=== PATIENT | female | born 1975 | race Caucasian/White ===

== ENCOUNTER 2021-03-11 09:22 | Emergency (ER) | payer OTHER, SELFPAY ==
[2021-03-11 09:31] VITALS: BP 120/90; PULSE 83; RESP 16; TEMP 36.2; O2SAT 99
--- NOTE | 2021-03-11 10:10 | ED.GENADULT ---
HPI - General Adult General Chief complaint: Skin/Abscess/Foreign Body Stated complaint: rash Source: patient Mode of arrival: ambulatory Limitations: no limitations History of Present Illness HPI narrative: Patient is a 45-year-old female who presents to the [facility] via POV for evaluation of a rash located on arms that has been present for 3 days. She reports the rash is erythematous and pruritic. She has tried a topical cream prescribed by her associate editor that has provided minimal relief cream. Nothing worsens rash. Related Data Home Medications Medication Instructions Recorded Confirmed amoxicillin 500 mg PO Q12H 03/11/21 03/11/21 fexofenadine [Ida Allergy] 180 mg PO DAILY 03/11/21 03/11/21 montelukast [Singulair] 10 mg PO DAILY 03/11/21 03/11/21 sertraline [Zoloft] 25 mg PO DAILY 03/11/21 03/11/21 thyroid (pork) [Lily Thyroid] 60 mg PO DAILY 03/11/21 03/11/21 Allergies Allergy/AdvReac Type Severity Reaction Status Date / Time No Known Allergies Allergy Verified 03/11/21 10:16 Review of Systems Review of Systems: Denies recent/new changes in soaps, perfumes, lotions, detergents, and shampoos. Denies working with chemicals. Denies new or changes in medications/foods. Pertinent negatives fever, chills, sweats, change in appetite, malaise, poor p.o. intake, recent weight loss, change in appetite, myalgias, lymphadenopathy, LOC, dizziness, burning sensation, petechiae, blistering, pruritus, streaking, warmth, lesions, easy bruising, lip/tongue/throat swelling, facial swelling, abdominal pain, nausea, vomiting, numbness, tingling, loss of sensation, cough, wheezing, chest pain, and heart palpitations/murmurs. PMFSH Past Medical History Medical History (Updated 03/11/21 @ 10:36 by La Beal, [employer]ATH[employer], ) Depression Hypothyroidism Seasonal allergic rhinitis Comments I have reviewed and agree with the patient's past medical, surgical, social, and family hx as documented by the RN. There is no relevant family history pertinent to the presenting complaint. Exam Narrative: GENERAL: Well-appearing, well-nourished, and in no acute distress. HEAD: Normocephalic, atraumatic. No facial swelling appreciated. EYES: PERRLA and EOMI. No evidence of erythema, swelling, or drainage. ENT: Nares clear, no rhinorrhea or epistaxis.Mucous membranes moist and pink. Uvula is midline without erythema and swelling. No evidence of obstruction, petechial rash, cobblestoning, lesions, ulcers, erythema, swelling, exudates, peritonsillar abscess, tenting, or drooling. Breath odor and voice normal. NECK: Supple. No Lymphadenopathy or nuchal rigidity appreciated. CHEST: Bilateral lung chen are clear to auscultation. No respiratory distress. No evidence of cough or pleuritic cp upon examination. HEART: Regular rate and rhythm. No murmur, gallop, or rub heard. EXTREMITIES: Normal range of motion. No edema. SKIN: Warm, dry. Subtle rash appreciated to palmar aspect of bilateral forearms. Rash is erythematous, macular, and papular. No evidence of cellulitis, abscess, streaking, induration, abrasions/lacerations, petechiae, hematoma, contusion, drainage, or bleeding. NEURO: No focal deficits. Alert and oriented x3. Course Vital Signs Vital signs: Vital Signs Temperature 97.2 F L 03/11/21 09:31 Pulse Rate 83 03/11/21 09:31 Respiratory Rate 16 03/11/21 09:31 Blood Pressure 120/90 03/11/21 09:31 Pulse Oximetry 99 03/11/21 09:31 Temperature 97.2 F L 03/11/21 09:31 Pulse Rate 83 03/11/21 09:31 Respiratory Rate 16 03/11/21 09:31 Blood Pressure 120/90 03/11/21 09:31 Pulse Oximetry 99 03/11/21 09:31 Reviewed Medical Decision Making Differential Diagnosis Differential Diagnosis: Contact/allergic dermatitis, atopic dermatitis, psoriasis, cellulitis, tinea infection, parasite infection, shingles Medical Records Medical records reviewed: Yes I reviewed the external patient's medical rec
== END 2021-03-11 10:35 | disposition home or self-care (01) ==
PROVIDERS: Emergency Provider Nurse Practitioner Family
DX: R21 Rash and other nonspecific skin eruption (principal); E11.9 Type 2 diabetes mellitus without complications; E03.9 Hypothyroidism, unspecified; F32.A Depression, unspecified
CPT/HCPCS: 99203; G0463